=== PATIENT | male | born 1995 | race Caucasian/White ===

== ENCOUNTER 2020-10-02 01:47 | Emergency (ER) | payer OTHER ==
[~2020-10-02 01:47] MED LIST: ANTI-ITCH28 GM TP; ANTIVERT 12.512.5 MG PO; BENTYL 10MG CAP10 MG PO; BROMFED DM COU473 ML PO; CODEINE-GUAIFE473 ML PO; IBU600 MG PO; KLOR-CON M1010 MEQ PO; LODINE CAP 300300 MG PO; PROTONIX40 MG PO; SUDAFED 60 MG T60 MG PO; VISTARIL 25 MG25 MG PO; ZANTAC150 MG PO; ZITHROMAX250 MG PO; ZYRTEC10 MG PO
[2020-10-02 04:39] LABS: HEMOGLOBIN 14.4 gm/dl (14.0-17.5); RED BLOOD COUNT 4.49 M/UL (4.20-5.50); WHITE BLOOD COUNT 6.1 K/UL (4.5-11.0)
[2020-10-02 04:57] LABS: BUN/CREATININE RATIO 20 (0-10)
[2020-10-02] MEDS ORDERED: TORADOL 10 MG T10 MG PO (05:03)
== END 2020-10-02 05:24 | disposition home or self-care (01) ==
LOC: ER1 01:47
PROVIDERS: Physician Assistant
DX: R10.9 Unspecified abdominal pain (principal); K21.9 Gastro-esophageal reflux disease without esophagitis
CPT/HCPCS: 80053; 81001; 83690; 85025; 96372; 99284; J1885

== ENCOUNTER 2021-03-12 15:56 | Emergency (ER) | payer OTHER ==
[~2021-03-12 15:56] MED LIST changes: +TORADOL 10 MG T10 MG PO
[2021-03-12 18:00] LABS: HEMOGLOBIN 16.3 gm/dl (14.0-17.5); RED BLOOD COUNT 5.08 M/UL (4.20-5.50); WHITE BLOOD COUNT 19.7 K/UL (4.5-11.0)
[2021-03-12 18:22] LABS: BUN/CREATININE RATIO 16 (0-10)
== END 2021-03-12 20:53 | disposition home or self-care (01) ==
LOC: ER1 15:56
PROVIDERS: Physician Assistant
DX: R50.9 Fever, unspecified (principal); Z20.822 Contact with and (suspected) exposure to COVID-19
CPT/HCPCS: 0240U; 71045; 80053; 83605; 85025; 87040; 87081; 87880; 96374; 99283; J2405

== ENCOUNTER 2021-10-12 14:52 | Emergency (ER) | payer OTHER ==
[2021-10-12 15:40] LABS: HEMOGLOBIN 15.4 gm/dl (14.0-17.5); RED BLOOD COUNT 4.83 M/UL (4.20-5.50); WHITE BLOOD COUNT 6.4 K/UL (4.5-11.0)
[2021-10-12 16:04] LABS: BUN/CREATININE RATIO 15 (0-10)
== END 2021-10-12 19:12 | disposition home or self-care (01) ==
LOC: ER1 14:52
PROVIDERS: Emergency Medicine
DX: R10.9 Unspecified abdominal pain (principal); R11.0 Nausea; K21.9 Gastro-esophageal reflux disease without esophagitis
CPT/HCPCS: 80053; 81001; 83690; 85025; 99284; C9113; Q9967

== ENCOUNTER 2021-11-04 18:08 | Emergency (ER) | payer OTHER | END 2021-11-04 23:04 | disposition home or self-care (01) | LOC: ER1 18:08 | DX: U07.1 COVID-19 (principal); F17.290 Nicotine dependence, other tobacco product, uncomplicated | CPT/HCPCS: 0240U; 87081; 87880; 99283 ==